=== PATIENT | female | born 1980 | race Caucasian/White ===

== ENCOUNTER 2016-07-21 05:25 | Day surgery (SDC) | payer OTHER ==
[~2016-07-21] VITALS: Ht 163.8 cm; Wt 60.8 kg
[~2016-07-21 05:25] MED LIST: ALEVE220 M2 PO; ALEVE220 MG PO; BRINTELLIX PO; CELEXA20 MG PO; CYMBALTA60 MG PO; DEXILANT60 MG PO; LYRICA50 MG PO; PERCOCET 5/31 TABLET PO; PRILOSEC40 MG PO
[2016-07-21 05:50] VITALS: BP 114/71
[2016-07-21] MEDS ORDERED: ENDOCET 5-3251 EACH PO (08:53)
[2016-07-21 10:03] VITALS: BP 129/70
[2016-07-21 11:48] VITALS: BP 108/70
[2016-07-21 13:05] VITALS: BP 114/72
[2016-07-21 15:15] VITALS: BP 115/72
== END 2016-07-21 15:35 | disposition home or self-care (01) ==
LOC: SDC 05:25
DX: N92.1 Excessive and frequent menstruation with irregular cycle (principal); N72 Inflammatory disease of cervix uteri; N80.0 Endometriosis of uterus; N80.3 Endometriosis of pelvic peritoneum; F41.9 Anxiety disorder, unspecified; K21.9 Gastro-esophageal reflux disease without esophagitis; Z80.3 Family history of malignant neoplasm of breast; F17.210 Nicotine dependence, cigarettes, uncomplicated; Z80.8 Family history of malignant neoplasm of other organs or systems
CPT/HCPCS: 88307; J0330; J0690; J1100; J1170; J1885; J2405; J2710; J3010